=== PATIENT | female | born 2000 | race Caucasian/White ===

== ENCOUNTER 2024-01-03 10:49 | Outpatient (CLI) | payer OTHER, SELFPAY ==
--- NOTE | 2024-01-03 10:54 | US_ITS ---
Patient: ALONA MATA Facility:?[facility] Patient ID:?[id number] Site Patient ID:?[id number]. Site :?[id number] Study:?US-OB Pelvis OB F/U SUBOPTIMAL VIEWS-01/03/2024 12:11:10 PM Ordering Physician:BETHANY LEVINE Final Report: OB US FOLLOW-UP SUBOPTIMAL VIEWS GABE by US: 05/14/2024. GA: 21w, 1d. Single. INDICATION: Follow-up suboptimal/missed views. FINDINGS: face, nose, lips, four-chamber heart, outflow tracts are visualized and within normal limits. Cervical length measures 3.6 cm. The placental edge is 4.5 cm from the internal os. The trans image of the lumbar spine, sacrum and thoracic spine are suboptimal. The long images of the cervical spine and thoracic spine are visualized and within normal limits. Long images of the sacrum and lumbar spine are suboptimally visualized. CERVIX: Visualized. Measurement: 3.6 cm. POSITIONING: Vertex. AMNIOTIC FLUID: 6.7 cm. PLACENTA: Technique: Transabdominal. PLACENTA POSITION: Anterior. DOPPLER: heart rate: 147 bpm. IMPRESSION: Single live intrauterine gestation. The face, four-chamber heart, outflow tracts, nose and lips are visualized and within normal limits. Trans images of the thoracic spine, lumbar spine and sacrum are suboptimally seen. Long images of the lumbar spine and sacrum are suboptimally seen. Alba Sanchez M.D. Diagnostic/Breast Radiologist [email or web address] TKP:adithya D& Transcribed: 12:17 p.m. SP/Dictated by: Alba Sanchez MD @ 01/04/2024 9:44:00 AM Signed by:?Alba Sanchez MD @01/06/2024 10:47:40 AM (Electronic Signature)
== END 2024-01-03 10:50 | disposition home or self-care (01) ==
PROVIDERS: Visit Provider Physician Assistant
DX: Z34.92 Encounter for supervision of normal pregnancy, unspecified, second trimester (principal); Z3A.21 21 weeks gestation of pregnancy
CPT/HCPCS: 76816

== ENCOUNTER 2024-01-29 13:04 | Outpatient (CLI) | payer OTHER, SELFPAY ==
--- NOTE | 2024-01-29 13:00 | CRLHL7_ITS ---
For Patients: As a result of the Cures Act, medical imaging exams and procedure reports are released immediately into your electronic medical record. You may view this report before your referring provider. If you have questions, please contact your health care provider. OB ULTRASOUND FOLLOWUP 01/29/2024 CLINICAL HISTORY: Followup spine views. COMPARISON: 01/03/2024. FINDINGS: GABE by US: 05/14/2024. GA: 24 w 6 d. Single CERVIX: Not visualized. POSITIONING: Breech. AMNIOTIC FLUID: 7.9 cm. PLACENTA: Technique: TA. Anterior. DOPPLERS: Heart Rate: 169 bpm. IMPRESSION: The spine was seen and appears normal. Tony Bullard M.D. Body/Diagnostic Radiologist [email or web address] Transcribed: 10:06 am DW/Dictated by: Tony Bullard MD @ 01/30/2024 8:40:00 AM (Electronically Signed)
== END 2024-01-29 13:05 | disposition home or self-care (01) ==
LOC: US 13:04
PROVIDERS: Visit Provider Advanced Practice Midwife
DX: Z34.92 Encounter for supervision of normal pregnancy, unspecified, second trimester (principal); Z3A.24 24 weeks gestation of pregnancy
CPT/HCPCS: 76816

== ENCOUNTER 2024-02-26 13:05 | Outpatient (CLI) | payer OTHER, SELFPAY | END 2024-02-26 13:06 | disposition home or self-care (01) | LOC: NFLDREF 02-29 07:05 | PROVIDERS: Visit Provider Advanced Practice Midwife | DX: Z34.93 Encounter for supervision of normal pregnancy, unspecified, third trimester (principal); Z3A.28 28 weeks gestation of pregnancy | CPT/HCPCS: 86592; 86787 ==

== ENCOUNTER 2024-03-04 08:04 | Outpatient (CLI) | payer OTHER, SELFPAY | END 2024-03-04 08:05 | disposition home or self-care (01) | LOC: NFLDREF 03-07 10:10 | PROVIDERS: Visit Provider Advanced Practice Midwife | DX: O99.810 Abnormal glucose complicating pregnancy (principal); Z3A.28 28 weeks gestation of pregnancy | CPT/HCPCS: 82951; 82952 ==

== ENCOUNTER 2024-03-21 11:46 | Outpatient (CLI) | payer OTHER, SELFPAY ==
--- NOTE | 2024-03-21 12:00 | CRLHL7_ITS ---
For Patients: As a result of the Century Cures Act, medical imaging exams and procedure reports are released immediately into your electronic medical record. You may view this report before your referring provider. If you have questions, please contact your health care provider. INDICATION: Gestational diabetes COMPARISON: 01/29/2024 TECHNIQUE: Real time ding scale imaging of the fetus was performed. FINDINGS: Sonographic imaging demonstrates a single living intrauterine gestation. Fetus demonstrates a regular cardiac rate of 144 beats per minute. Fetus has a vertex position. The placenta lies anterior. Amniotic fluid volume appears normal and there is a single deepest vertical pocket: 5.2 cm. The estimated weight is 2664gm which lies at the greater than 97th %. BPD 90th percentile. HC is 74th percentile. AC greater than 97th percentile. FL 71st percentile. The HC/AC ratio measures 0.94 range (0.93-1.11). IMPRESSION: Sonographic gestational age 34 weeks 5 days and sonographic due date 04/27/2024. Sonographic age 17 days ahead of the clinical age. Estimated weight greater than 97th percentile. Abdominal circumference greater than 97th percentile. Dictated by Terrell Salinas MD @ 03/21/2024 3:19:11 PM (Electronically Signed)
== END 2024-03-21 11:47 | disposition home or self-care (01) ==
LOC: US 11:47
PROVIDERS: Visit Provider Advanced Practice Midwife
DX: O24.419 Gestational diabetes mellitus in pregnancy, unspecified control (principal); Z3A.34 34 weeks gestation of pregnancy
CPT/HCPCS: 76816

== ENCOUNTER 2024-04-17 12:42 | Outpatient (CLI) | payer OTHER, SELFPAY ==
--- NOTE | 2024-04-17 13:00 | CRLHL7_ITS ---
For Patients: As a result of the Century Cures Act, medical imaging exams and procedure reports are released immediately into your electronic medical record. You may view this report before your referring provider. If you have questions, please contact your health care provider. INDICATION: Third trimester scan, evaluate growth. GDM, AMA. COMPARISON: 03/21/2024 TECHNIQUE: Real time ding scale imaging of the fetus was performed. FINDINGS: Sonographic imaging demonstrates a single living intrauterine gestation. Fetus demonstrates a regular cardiac rate of 147 beats per minute. Fetus has a vertex position. The placenta lies anterior. Amniotic fluid volume appears normal and there is a single deepest vertical pocket: 5.3 cm. The estimated weight is 3431gm which lies at the 95th %. On the prior OB ultrasound exam dated 03/21/2024 the estimated weight was at the greater than 97th%. BPD 85th percentile. HC 41st percentile. AC greater than 97th percentile. FL 86th percentile. The HC/AC ratio measures 0.93 range (0.90-1.05). IMPRESSION: Sonographic gestational age 37 weeks 5 days and sonographic due date 05/03/2024. Sonographic age 11 days ahead of the clinical age. Estimated weight 95th percentile. Abdominal circumference greater than 97th percentile. Dictated by Terrell Salinas MD @ 04/18/2024 2:35:05 PM (Electronically Signed)
== END 2024-04-17 12:43 | disposition home or self-care (01) ==
LOC: US 12:43
PROVIDERS: Visit Provider Midwife
DX: O24.410 Gestational diabetes mellitus in pregnancy, diet controlled (principal); Z3A.37 37 weeks gestation of pregnancy
CPT/HCPCS: 76816; 87081; 87653

== ENCOUNTER 2024-05-10 06:56 | Inpatient (IN) | payer OTHER, SELFPAY ==
[2024-05-10] VITALS (12 sets, daily range): BP systolic 99–129; BP diastolic 56–77; PULSE 70–93; TEMP 36.8; O2SAT 96–97; BMI 38.0
--- NOTE | 2024-05-10 09:12 | W.PM.LDBA ---
Subjective History of Present Illness Date Seen: 05/10/24 Narrative: Alexa is being admitted to Labor and Delivery for IOL for GDM1A. She is a 23 year old at 39.3 weeks gestation. Her full history and physical was dictated by Elli Bauman CNM on 04/28/24. Please see this for details. Her cervical exam was mostly unchanged from yesterday but she slightly thinner 2cm/80%/-1 and very posterior. We discussed options in depth for IOL and risks and benefits of each including Cook catheter, Cytotec, Pitocin and AROM. Induction consent was reviewed and signed. She would like to proceed with vaginal Cytotec but wants to reevaluate after 2-3 doses and consider switching to Pitocin titration at that time. Specific Issues/Plans G1 : [place] in February Transfer OB at 19 weeks and 2 days from [facility] Pre BMI-34.6 H&P done by Elli Bauman CNM on 04/28/24 # Gestational Diabetes failed 1hr (156) and 3 hr GTT (89, 199, 173, 86) nutrition referral: Seen 03/10 BID testing offered at 32 wks- has had good control. Growth every 4 weeks starting at 32 weeks: >97% at 32 wks, 94%ile at 36w Delivery recommended between 39.0 -40.6 weeks # asthma, mild. Rare albuterol need # history of depression anxiety dating back to age 12. Has failed multiple medications Self discontinued buspirone when she learned she was . Would like to restart . Restarted on BuSpar at 38wks. had genetic testing to show what meds would not work well for her. May need records if wanting to reference. # UTI first-trimester. Follow-up UC 1 week after treatment, declines another. # anatomy ultrasound 18+6, normal anatomy. Suboptimal views of kidneys, spine, lips, facial profile. They also recommended screen for Vasa previa with follow-up ultrasound however, no previa or vasa previa seen on anatomy scan Follow-up views WNL, final report says limited view of spine 2nd follow-up: WNL views of spine #Varicella non-immune recommend PP vaccination labs 09/28/2023: A positive, negative antibody screen, hemoglobin 14.1, platelets to await, rubella immune, RPR nonreactive, hepatitis-B surface antigen nonreactive, HIV negative, gonorrhea/chlamydia negative, urine culture negative, hep C negative Negative carrier screening for fragile X, CF, SMA Imagin. 09/28/2023: Living intrauterine 7 weeks 2 days GABE 05/14/2024. 2. anatomy ultrasound 12/18/2023: Anterior placenta, no previa normal anatomy. Suboptimal views of kidney, spine, lips, facial profile. EFW 86.8% OB - Problem Based A/P Additional Plan (1) Encounter for induction of labor: Status: Acute (2) LGA (large for gestational age) fetus: Status: Acute (3) Gestational diabetes: Status: Acute (4) Depression with anxiety: Problem details: Buspar started 3rd tri Status: Acute (5) Asthma: Status: Acute Plan ASSESSMENT:? at 39.3 weeks gestation? GBS negative? complicated by: ?GDM1A (well controlled), mild asthma, depression/anxiety (on Buspar), suspected macrosomia (EFW >97%, AC >97%), varicella non-immune Blood type:?A+ ? PLAN:? 1. Reviewed risks and benefits of IOL with Pitocin vs Cytotec vs AROM. Pt prefers Cytotec. Reevaluate after 2-3 doses and consider switching to Pitocin titration at that time. 2. Desires water . Consent signed. Hep C negative.? 3. Candidate for analgesia of choice. Planning unmedicated .? 4. Anticipate NVD? 5. IV placement per policy. 6. Continuous monitoring per policy Delivery/Labor/Induction Plan Plan: induction Induction method: per misoprostol protocol OB Result Labs Blood Type: A (+) positive Rubella: immune RPR/VDLR: nonreactive GBS Status: negative HBsAG: negative OB Exam Physical Exam Vital signs: Pulse BP Pulse Ox 88 125/77 96 05/10/24 07:28 05/10/24 07:28 05/10/24 07:23 Narrative: Psychiatric:? Alert and oriented x3? HEENT:? Normocephalic, atraumatic? Neck:? Supple without adenopathy or thyromegaly? Lungs:? Clear to auscultation bilaterally? Heart:? Regular rate and rhythm, no murmur, rub or gallop? Abdomen:? Soft, nontender, and gravid? Extremities:? No edema or erythema? Detailed Labor and Delivery Exam Patient Gravid: Yes Dilation (cm): 2 Effacement (%): 80 Cervix position: posterior Consistency: medium Contraction Frequency: occasional contraction noted on TOCO but not felt by patinet Tachysystole: No Fetus (Single) Station: -1 Amniotic Membrane Status: intact Heart Rate Baseline: 125 Monitor Accelerations: Present Monitor Decelerations: None [employer] Kitchen Variability: Moderate (6-25)
[2024-05-10] MEDS: miSOPROStoL 25 MCG/0.25 TABLET VAGINAL ×3 (09:35→15:40)
[2024-05-10 14:29] LABS: Basophils Absolute Auto 0.03 K/uL (0.00-0.30); Basophils Percent Auto 0.3 % (0.0-3.0); Eosinophils Absolute Auto 0.05 K/uL (0.00-0.50); Eosinophils Percent Auto 0.5 % (0.0-7.0); Hematocrit 42.1 % (33.0-51.0); Hemoglobin* 13.9 gm/dL (12.0-16.0); Immature Granulocytes Abs Auto 0.05 K/uL (0.00-0.30); Immature Granulocytes Pct Auto 0.5 %; Lymphocytes Absolute Auto 2.14 K/uL (0.90-2.90); Lymphocytes Percent Auto 21.2 % (20-44); Mean Corpuscular HGB Conc 33 gm/dL (32-36); Mean Corpuscular Hemoglobin 29 pg (26-34); Mean Corpuscular Volume 89 fL (80-100); Monocytes Percent Auto 7.6 % (0.0-11.0); Neutrophils Absolute Auto 7.04 K/uL (1.7-7.0); Neutrophils Percent Auto 69.9 % (42.0-72.0); Platelet Count* 212 K/uL (140-440); RDW Coefficient of Variation % 14.7 % (11.5-15.5); Red Blood Count 4.75 m/uL (4.00-5.20); White Blood Count* 10.08 K/uL (4.50-11.00)
[2024-05-10 14:39] LABS: Slide Review Reflex No
[2024-05-10] MEDS: BUSPIRONE 10 MG TABLET PO (15:39)
--- NOTE | 2024-05-10 19:39 | PM.OBPNL ---
Subjective Date Seen: 05/10/24 Narrative: Alexa has now received 3 doses of Cytotec. Se is feeling contractions in her low back and low abdomen. She feels that they are tightening but not pain at this time and was easily able to talk during them. Cervical exam 3cm/80%/-1. We discussed options for continuing her induction including continuing with Cytotec, Pitocin titration, and AROM. She would like to proceed with Pitocin titration. Discussed risks and benefits. Encouraged her to take a nap if able and ambulation/position changes to promote physiologic when unable. PP blood sugars have been normal and VSS. Objective Vital Signs: Last Vital Signs Temp 98.3 F 05/10/24 15:37 Pulse 78 05/10/24 19:35 BP 129/74 05/10/24 19:35 Pulse Ox 97 05/10/24 15:37 Pelvic Exam Dilation (cm): 3 Effacement (%): 80 Station: -1 Contractions Monitor mode: External Contraction Frequency: 2-4 Contraction pattern: Irregular Contraction intensity: Mild Assessment Assessment: induction ongoing Station: -1 Heart Rate Baseline: 130 Solutions Consultant Variability: Moderate (6-25) Monitor Accelerations: Present Monitor Decelerations: None Plan Plan: ASSESSMENT:? at 39.3 weeks gestation? GBS negative? complicated by: ?GDM1A (well controlled), mild asthma, depression/anxiety (on Buspar), suspected macrosomia (EFW >97%, AC >97%), varicella non-immune Blood type:?A+ ? PLAN:? 1. Reviewed risks and benefits of continuing IOL with Pitocin vs continuing with Cytotec vs AROM. Pt prefers Pitocin Titration. 2. Desires water . Consent signed. Hep C negative.? 3. Candidate for analgesia of choice. Planning unmedicated .? 4. Anticipate NVD? 5. IV placement for Pitocin titration. 6. Continuous monitoring per policy.
[2024-05-10] MEDS: OXYTOCIN 30 unit/500 ML in NS 30 UNIT/500 ML BAG IVPB (20:03)
[2024-05-10] MEDS: LACTATED RINGERS 1000 ML 1,000 ML 125 ML IV (20:03)
[2024-05-10] MEDS: hydrOXYzine pamoate 25 MG CAPSULE 100 MG PO (21:33)
[2024-05-10] MEDS: MORPHINE 10 MG/ML inj IM (21:34)
[2024-05-11] VITALS (58 sets, daily range): BP systolic 92–133; BP diastolic 52–97; PULSE 68–150; RESP 16; TEMP 36.6–37.3; O2SAT 92–100
[2024-05-11] MEDS: LACTATED RINGERS 1000 ML 1,000 ML 125 ML IV (03:46)
[2024-05-11] MEDS: OXYTOCIN 10 UNIT/ML INJ IM (08:51)
--- NOTE | 2024-05-11 09:31 | W.PM.OBVAGDE ---
OB Procedure Vag Delivery Mother Details Mother Details: The patient is a 23 year-old, 1, Para 0, admitted on 05/10/24 at Days gestation. : 1 Para: 1 Weeks Gestation: 39.4 Admission Date: 05/10/24 Additional Details Amniotic Membrane Status: SROM Amniotic Membrane Rupture Date: 05/11/24 Amniotic Membrane Rupture Time: 03:52 (fore bag AROM around 0630) Amniotic Membrane Fluid Description: Clear Analgesia/Anesthesia Type: Nitrous Oxide Waterbirth: Yes Pitcoin: Yes Intrapartal Events: Labor Augmentation and Labor Induction Induction Method: per misoprostol protocol and per pitocin protocol Delivery augmentation: rupture of membranes Labor Onset: 03:52 Complete: 06:31 (presumed with pushing ) Pushin:31 Heart: heart tones during second stage were category 2 with baseline 135, + accels, moderate variability and occasional variable decelerations. Tracing was broken at the end of second stage due to maternal and position. Delivery Details Delivery Date: 05/11/24 Delivery Time: 08:35 Route of delivery: Gender: Male Infant Viability: Alive; Heart Rate Present Position at Delivery: OA Delivery Details: Alexa was admitted for IOL for GDM1A. IOL was started with 3 doses of Cytotec followed by Pitocin titration. After SROM Pitocin was temporally turned off for maternal coping and labor progressing quickly. It was restarted after pushing for a little while as the contractions were starting to space apart. AROM of the fore bag was also used to augment labor. SROM noted at 0352 with clear fluid. Patient was presumed complete with pushing at 0631. of a viable male at 0835 on her back in the tub. Vertex delivered OA. Nuchal cord x1 easily reduced on the perineum. No shoulder. Body delivered easily and without incident. Infant passed to mothers abdomen with a vigorous cry. Cord was clamped and cut at about 3 minutes after a moderate gush of blood in the tub. She was then moved to the bed with assistance for delivery of the placenta. APGARS were 8 at one minute and 9 at five minutes respectively. Mouth was bulb suctioned. Intact placenta with a 3 vessel cord delivered spontaneously at 0908. Lots of calcifications noted on the placenta. Fundus firm. 1st perineal laceration identified, was hemostatic and not repaired in typical after shared decision making. QBL 250mL in the drape and EBL 500mL in the tub for a total of 750mL. Mother and baby stable; mother plans to breastfeed. weight pending.? 1 Minute Interval Total Score: 8 5 Minute Interval Total Score: 9 Additional Details Shoulder Dystocia: No Placenta Delivery Time: 09:08 Placental Delivery Description: Spontaneous Procedure Done: Global Blood Loss: 750 (QBL 250, EBL 500) Laceration: Perineal - 1st Degree (not repaired ) Episiotomy Description: None Blood Loss Measurement Type: QBL (and EBL in the tub) Bakri Used: No Sponge/Need Count Correct: Yes Cord Vessel Description: 3 Vessels, Nuchal Cord, Loose and Reduced Event Summary Status: Mother and were stable after delivery. Disposition: floor
[2024-05-11] MEDS: ONDANSETRON 2 MG/ML inj 4 MG IV (12:08)
[2024-05-11] MEDS: LACTATED RINGERS 1000 ML 1,000 ML IV (12:09)
[2024-05-11] MEDS: ACETAMINOPHEN 500 MG TABLET 1000 MG PO ×2 (13:35→19:33)
[2024-05-11] MEDS: BUSPIRONE 10 MG TABLET PO ×2 (13:35→21:03)
[2024-05-11] MEDS: IBUPROFEN 600 MG TABLET PO ×2 (15:30→23:13)
[2024-05-12 00:30] VITALS: BP 114/73; PULSE 90; RESP 16; TEMP 36.4; O2SAT 96
[2024-05-12 03:30] VITALS: BP 108/70; PULSE 94; RESP 16; TEMP 36.7; O2SAT 97
[2024-05-12] MEDS: ACETAMINOPHEN 500 MG TABLET 1000 MG PO (06:06)
[2024-05-12 06:48] LABS: Hemoglobin* 10.3 gm/dL (12.0-16.0)
[2024-05-12 07:57] VITALS: BP 98/63; PULSE 94; RESP 16; TEMP 36.5
--- NOTE | 2024-05-12 08:10 | P.DS_ITS ---
DS: Providers Provider Date Seen: 05/12/24 Date of admission: 05/10/24 06:56 Primary care physician: Not a Local Provider Admitting Clinician: Clarisse Mcdonald CNM Attending Physician on discharge: Avril WOODSON APRN Date of Discharge: 05/12/24 DS: Diagnosis Discharge Diagnosis (1) care and examination of lactating mother: Status: Acute (2) Gestational diabetes: Status: Acute (3) Asthma: Status: Acute (4) Depression with anxiety: Status: Acute Problem details: Buspar started 3rd tri Exam Narrative: Exam Narrative: GENERAL APPEARANCE:? normal affect, alert, no distress MOOD:? appropriate CHEST:? clear to auscultation HEART:? regular rate and rhythm ABDOMEN:? soft, non-tender the uterine fundus is At Umbilicus, Midline and is appropriate for the stage of recovery. PERINEUM:? mild edema of the perineum, there is a Perineal Laceration appears in the appropriate stage of healing. EXTREMITIES:? normal and minimal edema Const: Vital Signs, click to edit/add: Vital Signs - 24 hr 05/11/24 08:25 05/11/24 08:56 05/11/24 09:01 Temperature Pulse Rate 86 Pulse Rate [Pulse Oximeter] Respiratory Rate Blood Pressure Blood Pressure [Le ft Arm] Pulse Oximetry 97 97 Oxygen Delivery [facility] 05/11/24 09:06 05/11/24 09:09 05/11/24 09:24 Temperature Pulse Rate 112 H 129 H Pulse Rate [Pulse Oximeter] Respiratory Rate Blood Pressure 113/79 112/76 Blood Pressure [Le ft Arm] Pulse Oximetry 96 Oxygen Delivery [facility] 05/11/24 09:35 05/11/24 09:38 05/11/24 09:41 Temperature 98.7 F Pulse Rate 150 H 133 H Pulse Rate [Pulse Oximeter] Respiratory Rate Blood Pressure 114/75 121/71 Blood Pressure [Le ft Arm] Pulse Oximetry Oxygen Delivery [facility] 05/11/24 09:42 05/11/24 09:54 05/11/24 09:55 Temperature 99.1 F Pulse Rate 148 H Pulse Rate [Pulse Oximeter] Respiratory Rate Blood Pressure 128/72 Blood Pressure [Le ft Arm] Pulse Oximetry 96 Oxygen Delivery [facility] 05/11/24 10:08 05/11/24 10:09 05/11/24 10:23 Temperature 99.1 F Pulse Rate 134 H 120 H Pulse Rate [Pulse Oximeter] Respiratory Rate Blood Pressure 115/62 125/60 Blood Pressure [Le ft Arm] Pulse Oximetry 96 Oxygen Delivery [facility] 05/11/24 10:38 05/11/24 11:29 05/11/24 11:32 Temperature Pulse Rate 141 H 96 98 Pulse Rate [Pulse Oximeter] Respiratory Rate Blood Pressure 111/56 L 92/52 L 94/53 L Blood Pressure [Le ft Arm] Pulse Oximetry [facility] 05[facility] 11:34 05/11/24 11:35 05/11/24 11:37 Temperature 98.7 F Pulse Rate 104 H Pulse Rate [Pulse Oximeter] Respiratory Rate Blood Pressure 94/55 L Blood Pressure [Le ft Arm] Pulse Oximetry 96 [facility] 05/[facility] 11:42 05/11/24 11:47 05/11/24 11:51 Temperature Pulse Rate 105 H Pulse Rate [Pulse Oximeter] Respiratory Rate Blood Pressure 98/67 Blood Pressure [Le ft Arm] Pulse Oximetry 96 97 [facility] 05/[facility] 11:52 05/11/24 11:57 05/11/24 12:01 Temperature Pulse Rate 100 Pulse Rate [Pulse Oximeter] Respiratory Rate Blood Pressure 100/64 Blood Pressure [Le ft Arm] Pulse Oximetry 98 [facility] 05/11/[facility] 12:02 05/11/24 12:07 05/11/24 12:08 Temperature Pulse Rate Pulse Rate [Pulse Oximeter] Respiratory Rate Blood Pressure Blood Pressure [Le ft Arm] Pulse Oximetry 97 100 92 [facility] 05/11/24 12:11 05/11/24 12:12 05/11/24 12:17 Temperature Pulse Rate 100 Pulse Rate [Pulse Oximeter] Respiratory Rate Blood Pressure 109/56 L Blood Pressure [Le ft Arm] Pulse Oximetry 99 95 [facility] 05/[facility]/24 12:21 05/11/24 12:22 05/11/24 12:27 Temperature Pulse Rate 96 Pulse Rate [Pulse Oximeter] Respiratory Rate Blood Pressure 93/52 L Blood Pressure [Le ft Arm] Pulse Oximetry 94 95 96 [facility] 05/[facility]/24 12:28 05/11/24 12:31 05/11/24 12:32 Temperature Pulse Rate 98 Pulse Rate [Pulse Oximeter] Respiratory Rate Blood Pressure 102/55 L Blood Pressure [Le ft Arm] Pulse Oximetry 94 96 Oxygen Delivery [facility] 05/11/24 12:37 05/11/24 12:42 05/11/24 12:44 Temperature Pulse Rate 112 H Pulse Rate [Pulse Oximeter] Respiratory Rate Blood Pressure 113/60 Blood Pressure [Le ft Arm] Pulse Oximetry 96 98 Oxygen Delivery [facility] 05/11/24 12:47 05/11/24 12:51 05/11/24 12:52 Temperature Pulse Rate 105 H Pulse Rate [Pulse Oximeter] Respiratory Rate Blood Pressure 107/58 L Blood Pressure [Le ft Arm] Pulse Oximetry 97 97 Oxygen Delivery [facility] 05/11/24 12:57 05/11/24 13:01 05/11/24 13:02 Temperature Pulse Rate 113 H Pulse Rate [Pulse Oximeter] Respiratory Rate Blood Pressure 107/61 Blood Pressure [Le ft Arm] Pulse Oximetry 97 97 Oxygen Delivery [facility] 05/11/24 13:21 05/11/24 15:20 05/11/24 21:00 Temperature 98.6 F 98.1 F Pulse Rate 117 H Pulse Rate [Pulse Oximeter] 105 H 91 Respiratory Rate 16 16 Blood Pressure 130/70 Blood Pressure [Le ft Arm] 107/70 97/63 Pulse Oximetry 96 94 Oxygen Delivery [facility] Room Air 05/12/24 00:30 05/12/24 03:30 05/12/24 07:57 Temperature 97.6 F 98.1 F 97.7 F Pulse Rate Pulse Rate [Pulse Oximeter] 90 94 94 Respiratory Rate 16 16 16 Blood Pressure Blood Pressure [Le ft Arm] 114/73 108/70 98/63 Pulse Oximetry 96 97 Oxygen Delivery [facility] Room Air Room Air OB - DS: Summary Hospital Course Hospital Course: The patient is a 23 year old G 1 P 1001 at 39w3d gestation that was admitted to the Center on 05/10/24 for IOL for GDM. She had an uncomplicated vaginal delivery. She delivered a viable male . She is . the patient has done well. The patient feels well.? The pain is well controlled with current medications.? She has no new complaints.? She is breast feeding and reports things are going pretty well, though she struggles sometimes to get him latched well. the patient has done well.? Vitals have been stable.? She has remained afebrile.? Has a good appetite, is tolerating a general diet.? She is voiding without difficulty.? She is passing gas and has not had a bowel movement.? She is ambulating and denies any dizziness.? Has small amount of rubra lochia. She unsure what she is planning for prevention.? Peripartum Data Infant delivery method: Vaginal Laceration description: Perineal - 1st Degree (No repair) complications: none [place] Infant Gender: Male Discharge Plan: Home Status at Discharge Overall status at discharge: patient is progressing back to baseline Time Spent with Patient Time attestation: Total time spent providing and/or coordinating discharge services: Time spent: Less than 30 minutes Discharge Plan Discharge Disposition: Home, Self-Care Date of Admission: 05/10/24 06:56 Attending Provider on Discharge: Vianey Bello Primary Care Provider: Provider,Not a Local Condition: Stable Anticipated Discharge Date/Time: 05/12/24 12:00 Discharge Medications: Continued DHA 200 mg capsule 200 mg PO DAILY cholecalciferol (vitamin D3) 25 mcg (1,000 unit) capsule 25 mcg PO QDAY buspirone 10 mg tablet 5 mg PO BID Qty: 90 0RF Discharge Orders: Discharge Order (Routine); Ordered 05/12/24 Ordered By: Vianey Bello Patient Education: OB Care, OB Vaginal/Breast Feeding Additional Instructions: Discharge instructions were reviewed with the patient including signs and symptoms of infection and home going medications Nothing vaginally for 6 weeks: no tampons or intercourse Do not drive while taking narcotic pain medication(s) Off Work or School for 6 weeks Symptoms to report to doctor: * Bleeding that saturates more than one pad per hour * Passing clots larger than the size of a golf ball * Pain not relieved by prescribed medication * Fever above 100.4 degrees Fahrenheit * A foul vaginal odor * Difficulty in emotions, mood, and functions * Thoughts of hurting yourself and/or * Painful, reddened area in your breast * Any drainage, redness, or tenderness in your IV/epidural site * Severe headache that doesn't improve after taking medications * Changes in vision, including temporary loss of vision, blurred vision, and/or light sensitivity * Upper abdominal pain (usually under ribs on the right side) * Decrease in urination or painful, frequent urinating * Chest pain * Shortness of breath * Tenderness or pain with redness and/swelling in the calf(s) of your leg 2-week visit: discuss infant feeding concerns, review control options and screen for anxiety/depression. 6-week visit for an annual exam. consultation services are available to all mothers and babies for the first year after delivery.? To make an appointment, please call [phone]. Activity Level: Activity as Tolerated Discharge Diet: Regular Follow Up Appointments: [facility] [Provider Group] Forms: [employer] Info Instructions DS:Data Additional Comments Additional comments: Discharge home with baby. Follow up in 2 weeks and 6 weeks. , may see if needed Hgb 10.3. Labs WNL or stable with trending Call for signs/symptoms of preeclampsia For pain control of perineum, breast and pelvic pain, take 600 mg Ibuprofen every 6 hours as needed by mouth or 1000 mg acetaminophen (Tylenol) every 6 hours by mouth as needed. You can alternate these so you are taking something every 3 hours as needed. A heating pad can also be used for your abdomen or breasts.
[2024-05-12] MEDS: BUSPIRONE 10 MG TABLET PO (08:26)
[2024-05-12] MEDS: DOCUSATE SODIUM 100 MG CAPSULE PO (08:26)
[2024-05-12 08:48] LABS: Glucose Fasting 82 mg/dl (70-95)
[2024-05-12 10:50] LABS: Glucose 2 Hour 91 mg/dl (70-155)
[2024-05-14 03:28] LABS: Rapid Plasma Reagin (RPR) Non Reactive (Non Reactive)
== END 2024-05-12 12:00 | disposition home or self-care (01) | DRG 807 ==
PROVIDERS: Admitting Provider Advanced Practice Midwife; Visit Provider Advanced Practice Midwife
DX: O24.420 Gestational diabetes mellitus in childbirth, diet controlled (principal); Z37.0 Single live birth; O36.63X0 Maternal care for excessive fetal growth, third trimester, not applicable or unspecified; O70.0 First degree perineal laceration during delivery; O99.344 Other mental disorders complicating childbirth; F41.8 Other specified anxiety disorders; J45.909 Unspecified asthma, uncomplicated; Z3A.39 39 weeks gestation of pregnancy
CPT/HCPCS: 36415; 59200; 82947; 82950; 85018; 85025; 86592; 86850; 86900; 86901; 88307; A9270; J2270; J2405; J2590; J7120